=== PATIENT | female | born 1985 | race Caucasian/White ===

== ENCOUNTER 2018-01-22 16:47 | Emergency (ER) | payer MEDICAID ==
[~2018-01-22] VITALS: Ht 160 cm; Wt 72.6 kg
[2018-01-22 16:50] VITALS: Ht 160 cm; Wt 72.6 kg
[2018-01-22 17:22] LABS: PLATELET COUNT 383 x10^3mcL (130-400); RED CELL DISTRIBUTION WIDTH 13.4 % (11.5-14.5)
[2018-01-22 17:30] LABS: BASOPHIL % 0 % (0-2)
[2018-01-22 17:31] LABS: CALCIUM 7.9 mg/dL (8.5-10.1); CARBON DIOXIDE 23.4 mmol/L (21-32); CHLORIDE SERUM 106 mmol/L (98-107); CREATININE SERUM 0.7 mg/dL (0.6-1.0); GFR1 > 60 mL/min; GLUCOSE SERUM 114 mg/dL (74-106); POTASSIUM SERUM 3.3 mmol/L (3.5-5.1); SODIUM SERUM 137 mmol/L (136-145)
[2018-01-22 17:35] LABS: ALBUMIN 3.7 g/dL (3.4-5.0); ALKALINE PHOSPHATASE 69 U/L (46-116); ALT/SGPT 37 U/L (14-59); AMYLASE 34 U/L (25-115); AST/SGOT 18 U/L (15-37); BILIRUBIN TOTAL 0.5 mg/dL (0.20-1.00); LIPASE 100 IU/L (73-393); TOTAL PROTEIN, SERUM 7.8 g/dL (6.4-8.2)
[2018-01-22 18:16] VITALS: BP 127/93
== END 2018-01-22 18:16 | disposition home or self-care (01) ==
LOC: ED 16:47
PROVIDERS: Emergency Medicine
DX: R10.13 Epigastric pain (principal)
CPT/HCPCS: 36415; J1885

== ENCOUNTER 2019-01-17 12:26 | Emergency (ER) | payer MEDICAID ==
[~2019-01-17] VITALS: Ht 157.5 cm; Wt 68.0 kg
[2019-01-17 14:12] VITALS: BP 120/77
== END 2019-01-17 14:12 | disposition home or self-care (01) ==
LOC: ED 12:26
DX: K04.7 Periapical abscess without sinus (principal); R51 Headache